=== PATIENT | male | born 1930 | race Caucasian/White ===

== ENCOUNTER 2017-05-29 10:18 | Emergency (ER) | payer MEDICARE, BC ==
[~2017-05-29] VITALS: Ht 172.7 cm; Wt 70.0 kg
[~2017-05-29 10:18] MED LIST: ASPI81TA52 PO; ATOR20TA66 PO; QUET25TA PO; TRIA1CAP6 PO
[2017-05-29 12:11] VITALS: BP 123/78
== END 2017-05-29 12:13 | disposition home or self-care (01) ==
LOC: ER 10:18 → MERGE 10:18 → ER 12:13
DX: S06.0X0A Concussion without loss of consciousness, initial encounter (principal); S76.911A Strain of unspecified muscles, fascia and tendons at thigh level, right thigh, initial encounter; Z79.899 Other long term (current) drug therapy; W18.30XA Fall on same level, unspecified, initial encounter; Y93.89 Activity, other specified; Y92.89 Other specified places as the place of occurrence of the external cause; Y99.8 Other external cause status
CPT/HCPCS: 99284

== ENCOUNTER 2017-06-08 14:35 | Emergency (ER) | payer MEDICARE, BC ==
[~2017-06-08] VITALS: Ht 182.9 cm; Wt 93.2 kg
[2017-06-08 15:24] LABS: CLARITY,URINE Clear (Clear); COLOR,URINE Yellow (Yellow); GLUCOSE, URINE Negative (Neg); KETONES,URINE Negative (Neg); LEUKOCYTE ESTERASE ,URINE Negative (Neg); NITRITES, URINE Negative (Neg); OCCULT BLOOD,URINE Negative (Neg); PROTEIN,URINE Negative (Neg)
[2017-06-08 15:33] LABS: UA COLLECTION TYPE CLN CATCH MIDSTREAM
[2017-06-08] MEDS ORDERED: OLANZapine 2.5MG tablet PO ONE (15:35)
[2017-06-08 15:42] LABS: BASOPHILS % (AUTO) 0.5 % (0-1); EOSINOPHILS # (AUTO) 0.2 X10'3 (0-0.9); EOSINOPHILS % (AUTO) 2.3 % (0-6); HEMATOCRIT 40.8 % (42.0-52.0); HEMOGLOBIN 14.1 g/dl (14.0-17.9); LYMPHOCYTES % (AUTO) 25.2 % (21-51); MEAN CORPUSCULAR HEMOGLOBIN 30.4 PG (27.0-31.0); MEAN CORPUSCULAR HGB CONC 34.4 % (33.0-36.5); MEAN CORPUSCULAR VOLUME 88.3 FL (78-98); MEAN PLATELET VOLUME 9.6 FL (7.4-10.4); MONOCYTES # (AUTO) 0.7 X10'3 (0-0.9); MONOCYTES % (AUTO) 8.6 % (2-12); NEUTROPHILS # (AUTO) 5.1 X10'3 (1.8-7.7); NEUTROPHILS % (AUTO) 63.4 % (42-75); PLATELET COUNT 255 X10'3 (140-440); RED BLOOD COUNT 4.62 X10'6 (4.70-6.10); RED CELL DISTRIBUTION WIDTH 15.2 % (11.5-14.5)
[2017-06-08 15:56] LABS: ALANINE AMINOTRANSFERASE 13 U/L (12-78); ALBUMIN 3.8 G/DL (3.4-5.0); ALBUMIN/GLOBULIN RATIO 0.9 (1.1-1.5); ALKALINE PHOSPHATASE 84 IU/L (46-116); ANION GAP 12 (8-16); ASPARTATE AMINO TRANSFERASE 18 U/L (10-37); BILIRUBIN,TOTAL 0.7 MG/DL (0.1-1.0); BLOOD UREA NITROGEN 46 MG/DL (7-18); BUN/CREATININE RATIO 25.1 (5.4-32.0); CALCIUM 9.5 MG/DL (8.5-10.1); CHLORIDE 103 MMOL/L (99-107); CREATININE 1.83 MG/DL (0.60-1.10); GLUCOSE 118 MG/DL (70-104); POTASSIUM 3.6 MMOL/L (3.5-5.1); SODIUM 141 MMOL/L (135-145); TOTAL CARBON DIOXIDE 26.2 MMOL/L (24-32); TOTAL PROTEIN 8.2 G/DL (6.4-8.2); eGFR 35 ML/MIN
[2017-06-08] MEDS ORDERED: normal saline 1000ML IV soln IVB ONE (16:05)
[2017-06-08 17:11] VITALS: BP 148/85
== END 2017-06-08 17:58 | disposition home or self-care (01) ==
LOC: ER 14:36
DX: E86.0 Dehydration (principal); N28.9 Disorder of kidney and ureter, unspecified; F03.90 Unspecified dementia, unspecified severity, without behavioral disturbance, psychotic disturbance, mood disturbance, and anxiety
CPT/HCPCS: 36415; 80053; 81003; 85025; 96360; 99284; J7030

== ENCOUNTER 2017-09-07 11:55 | Inpatient (IN) | payer MEDICARE, BC ==
[~2017-09-07] VITALS: Ht 177.8 cm; Wt 70.1 kg
[~2017-09-07 11:55] MED LIST changes: +DOXY100C43 PO; +ONDA8TAB9 PO
[2017-09-07] MEDS ORDERED: normal saline 1000ml 1,000 ML IV SCH (12:45)
[2017-09-07 13:06] LABS: BASOPHILS # (AUTO) 0.1 X10'3 (0-0.2); BASOPHILS % (AUTO) 0.5 % (0-1); EOSINOPHILS % (AUTO) 0.1 % (0-6); HEMATOCRIT 40.2 % (42.0-52.0); HEMOGLOBIN 13.8 g/dl (14.0-17.9); LYMPHOCYTES # (AUTO) 1.1 X10'3 (1.1-4.8); LYMPHOCYTES % (AUTO) 11.3 % (21-51); MEAN CORPUSCULAR HEMOGLOBIN 30.3 PG (27.0-31.0); MEAN CORPUSCULAR HGB CONC 34.3 % (33.0-36.5); MEAN CORPUSCULAR VOLUME 88.3 FL (78-98); MEAN PLATELET VOLUME 9.5 FL (7.4-10.4); MONOCYTES # (AUTO) 0.5 X10'3 (0-0.9); MONOCYTES % (AUTO) 5.5 % (2-12); NEUTROPHILS # (AUTO) 8.2 X10'3 (1.8-7.7); NEUTROPHILS % (AUTO) 82.6 % (42-75); PLATELET COUNT 361 X10'3 (140-440); RED BLOOD COUNT 4.55 X10'6 (4.70-6.10); RED CELL DISTRIBUTION WIDTH 14.8 % (11.5-14.5); WHITE BLOOD COUNT 9.9 X10'3 (4.5-11.0)
[2017-09-07] MEDS: normal saline 1000ml 1,000 ML IV SCH ×2 (13:09→23:09)
[2017-09-07] MEDS ORDERED: ondansetron/PF 4mg/2ml inj IV PRN (13:10)
[2017-09-07] MEDS ORDERED: acetaminophen 325mg tablet PO PRN ×2 (13:10)
[2017-09-07] MEDS ORDERED: pantoprazole 40mg Tablet.DR PO SCH (13:10)
[2017-09-07] MEDS ORDERED: potassium Cl 40MEQ/NS 500ml 500 ML IV PRN ×2 (13:10)
[2017-09-07] MEDS ORDERED: magnesium hydroxide 30ml (MOM) UD suspension PO PRN (13:10)
[2017-09-07] MEDS ORDERED: HYDROcodone/acetaminophen 10/325mg tab PO PRN (13:10)
[2017-09-07] MEDS: K and/or MAG REPLACEMENT MC SCH (13:10)
[2017-09-07] MEDS ORDERED: potassium Cl 20 mEq SR tablet PO PRN ×2 (13:10)
[2017-09-07] MEDS ORDERED: magnesium/D5W IVPB 50 ML IV PRN (13:10)
[2017-09-07] MEDS ORDERED: HYDROcodone/acetaminophen 5mg/325mg tablet PO PRN (13:10)
[2017-09-07] MEDS ORDERED: magnesium Cl slow-release 64mg tablet PO PRN (13:10)
[2017-09-07] MEDS ORDERED: mag hydrox/Alum hydrox/simeth 30ml oral suspension PO PRN (13:10)
[2017-09-07] MEDS ORDERED: magnesium 4gm in 100ml NS 100 ML IV PRN (13:10)
[2017-09-07 13:20] LABS: ALANINE AMINOTRANSFERASE 13 U/L (12-78); ALBUMIN 3.3 G/DL (3.4-5.0); ALBUMIN/GLOBULIN RATIO 0.7 (1.1-1.5); ALKALINE PHOSPHATASE 92 IU/L (46-116); ANION GAP 9 (8-16); ASPARTATE AMINO TRANSFERASE 21 U/L (10-37); BILIRUBIN,TOTAL 0.7 MG/DL (0.1-1.0); BLOOD UREA NITROGEN 28 MG/DL (7-18); BUN/CREATININE RATIO 19.7 (5.4-32.0); CHLORIDE 103 MMOL/L (99-107); CREATININE 1.42 MG/DL (0.60-1.10); GLUCOSE 111 MG/DL (70-104); POTASSIUM 3.3 MMOL/L (3.5-5.1); SODIUM 140 MMOL/L (135-145); TOTAL CARBON DIOXIDE 28.5 MMOL/L (24-32); TOTAL PROTEIN 7.9 G/DL (6.4-8.2); eGFR 47 ML/MIN
[2017-09-07 13:33] LABS: MAGNESIUM 1.8 MG/DL (1.5-2.4)
[2017-09-07 14:14] LABS: H PYLORI ANTIBODY NEGATIVE (Neg)
[2017-09-07] MEDS ORDERED: OLAN5TAB5 PO ×2 (15:18→15:21)
[2017-09-07] MEDS ORDERED: RIVA1PAT9 TOP (15:19)
[2017-09-07] MEDS ORDERED: SERT25TA PO (15:19)
[2017-09-07] MEDS ORDERED: RANI150T8 PO (15:20)
[2017-09-07] MEDS ORDERED: POLY17PO10 PO (15:20)
[2017-09-07] MEDS ORDERED: NAPR220T67 PO (15:22)
[2017-09-07] MEDS ORDERED: DOCU-28 PO (15:23)
[2017-09-07] MEDS ORDERED: LORA0.5T PO (15:24)
[2017-09-07 16:30] VITALS: BP 136/88
[2017-09-07] MEDS: pantoprazole 40 MG vial IV SCH (16:30)
[2017-09-07] MEDS: mag hydrox/Alum hydrox/simeth 30ml oral suspension PO SCH (17:00)
[2017-09-07 17:21] LABS: COLOR,URINE YELLOW (Yellow); GLUCOSE, URINE NEGATIVE (Neg); KETONES,URINE 15 mg/dl (Neg); LEUKOCYTE ESTERASE ,URINE NEGATIVE (Neg); NITRITES, URINE NEGATIVE (Neg); OCCULT BLOOD,URINE NEGATIVE (Neg); PROTEIN,URINE 30 mg/dl (Neg)
[2017-09-07 17:29] LABS: CLARITY,URINE SLIGHTLY CLOUDY (Clear); UA COLLECTION TYPE NON-SPECIFIED
[2017-09-07 17:30] LABS: RBC,URINE NONE SEEN /HPF (0-2)
[2017-09-07 17:31] LABS: BACTERIA,URINE FEW /HPF (Neg); HYALINE CASTS 0-3 /LPF (NEGATIVE); MUCUS STRANDS MODERATE /LPF (Neg); SQUAMOUS EPITHELIAL CELL,UR FEW /LPF (FEW)
[2017-09-07 19:30] VITALS: BP 173/85
[2017-09-07] MEDS: heparin, porcine 5000 units/ml vial SQ SCH (20:02)
[2017-09-07 23:35] VITALS: BP 141/60
[2017-09-08] VITALS: BP 148/75
[2017-09-08] MEDS: CefTRIAXone/D5W-Rocephin 1gm 50 ML IV SCH ×2 (00:39→07:36)
[2017-09-08] MEDS: normal saline 1000ml 1,000 ML IV SCH ×2 (05:01→16:01)
[2017-09-08 05:37] LABS: BASOPHILS % (AUTO) 0.6 % (0-1); EOSINOPHILS # (AUTO) 0.1 X10'3 (0-0.9); EOSINOPHILS % (AUTO) 1.5 % (0-6); HEMATOCRIT 36.5 % (42.0-52.0); HEMOGLOBIN 12.6 g/dl (14.0-17.9); LYMPHOCYTES # (AUTO) 1.8 X10'3 (1.1-4.8); LYMPHOCYTES % (AUTO) 23.8 % (21-51); MEAN CORPUSCULAR HEMOGLOBIN 30.8 PG (27.0-31.0); MEAN CORPUSCULAR HGB CONC 34.4 % (33.0-36.5); MEAN CORPUSCULAR VOLUME 89.5 FL (78-98); MEAN PLATELET VOLUME 10.1 FL (7.4-10.4); MONOCYTES # (AUTO) 0.5 X10'3 (0-0.9); MONOCYTES % (AUTO) 6.7 % (2-12); NEUTROPHILS # (AUTO) 5.1 X10'3 (1.8-7.7); NEUTROPHILS % (AUTO) 67.4 % (42-75); PLATELET COUNT 311 X10'3 (140-440); RED BLOOD COUNT 4.08 X10'6 (4.70-6.10); RED CELL DISTRIBUTION WIDTH 14.5 % (11.5-14.5); WHITE BLOOD COUNT 7.5 X10'3 (4.5-11.0)
[2017-09-08 06:01] LABS: ALANINE AMINOTRANSFERASE 12 U/L (12-78); ALBUMIN 2.8 G/DL (3.4-5.0); ALBUMIN/GLOBULIN RATIO 0.7 (1.1-1.5); ALKALINE PHOSPHATASE 77 IU/L (46-116); ANION GAP 9 (8-16); ASPARTATE AMINO TRANSFERASE 20 U/L (10-37); BILIRUBIN,TOTAL 0.5 MG/DL (0.1-1.0); BLOOD UREA NITROGEN 25 MG/DL (7-18); BUN/CREATININE RATIO 18.7 (5.4-32.0); CALCIUM 8.5 MG/DL (8.5-10.1); CHLORIDE 108 MMOL/L (99-107); CREATININE 1.34 MG/DL (0.60-1.10); GLUCOSE 97 MG/DL (70-104); MAGNESIUM 1.8 MG/DL (1.5-2.4); PHOSPHORUS 2.2 MG/DL (2.3-4.5); POTASSIUM 3.7 MMOL/L (3.5-5.1); SODIUM 142 MMOL/L (135-145); TOTAL CARBON DIOXIDE 25.4 MMOL/L (24-32); TOTAL PROTEIN 6.8 G/DL (6.4-8.2); eGFR 50 ML/MIN
[2017-09-08 06:54] VITALS: BP_SYST 121; BP_SYST 141; BP_DIAS 36; BP_DIAS 75
[2017-09-08] MEDS: mag hydrox/Alum hydrox/simeth 30ml oral suspension PO SCH ×3 (07:00→17:00)
[2017-09-08] MEDS: pantoprazole 40 MG vial IV SCH (07:36)
[2017-09-08] MEDS: heparin, porcine 5000 units/ml vial SQ SCH ×2 (07:36→20:31)
[2017-09-08] MEDS: K and/or MAG REPLACEMENT MC SCH (08:00)
[2017-09-08] MEDS ORDERED: LORazepam 0.5 MG tablet PO PRN (10:00)
[2017-09-08 11:00] VITALS: BP 173/83
[2017-09-08] MEDS: OLANZapine 5mg rapidly disint. tablet PO SCH (11:35)
[2017-09-08] MEDS: sertraline 50mg tablet PO SCH (11:36)
[2017-09-08] MEDS: megestrol acetate 400mg/10ml UD oral suspension PO SCH ×2 (11:36→20:30)
[2017-09-08 20:00] VITALS: BP 152/74
[2017-09-08] MEDS: lactobacillus rhamnosus 10,000 MMU CELLS/CAPSULE PO SCH (20:30)
[2017-09-09] VITALS: BP 133/81
[2017-09-09] MEDS: normal saline 1000ml 1,000 ML IV SCH ×3 (01:26→20:50)
[2017-09-09 05:06] LABS: BASOPHILS % (AUTO) 0.6 % (0-1); EOSINOPHILS # (AUTO) 0.2 X10'3 (0-0.9); EOSINOPHILS % (AUTO) 2.2 % (0-6); HEMATOCRIT 35.1 % (42.0-52.0); HEMOGLOBIN 11.9 g/dl (14.0-17.9); LYMPHOCYTES # (AUTO) 1.9 X10'3 (1.1-4.8); LYMPHOCYTES % (AUTO) 23.8 % (21-51); MEAN CORPUSCULAR HEMOGLOBIN 30.3 PG (27.0-31.0); MEAN CORPUSCULAR HGB CONC 33.9 % (33.0-36.5); MEAN CORPUSCULAR VOLUME 89.5 FL (78-98); MEAN PLATELET VOLUME 9.9 FL (7.4-10.4); MONOCYTES # (AUTO) 0.5 X10'3 (0-0.9); NEUTROPHILS # (AUTO) 5.5 X10'3 (1.8-7.7); NEUTROPHILS % (AUTO) 67.4 % (42-75); PLATELET COUNT 282 X10'3 (140-440); RED BLOOD COUNT 3.93 X10'6 (4.70-6.10); RED CELL DISTRIBUTION WIDTH 14.5 % (11.5-14.5); WHITE BLOOD COUNT 8.1 X10'3 (4.5-11.0)
[2017-09-09 05:27] LABS: ALANINE AMINOTRANSFERASE 11 U/L (12-78); ALBUMIN 2.7 G/DL (3.4-5.0); ALBUMIN/GLOBULIN RATIO 0.7 (1.1-1.5); ALKALINE PHOSPHATASE 76 IU/L (46-116); ANION GAP 7 (8-16); ASPARTATE AMINO TRANSFERASE 19 U/L (10-37); BILIRUBIN,TOTAL 0.4 MG/DL (0.1-1.0); BLOOD UREA NITROGEN 20 MG/DL (7-18); BUN/CREATININE RATIO 17.9 (5.4-32.0); CALCIUM 8.3 MG/DL (8.5-10.1); CHLORIDE 109 MMOL/L (99-107); CREATININE 1.12 MG/DL (0.60-1.10); GLUCOSE 101 MG/DL (70-104); MAGNESIUM 1.7 MG/DL (1.5-2.4); PHOSPHORUS 1.9 MG/DL (2.3-4.5); POTASSIUM 3.8 MMOL/L (3.5-5.1); SODIUM 141 MMOL/L (135-145); TOTAL CARBON DIOXIDE 25.1 MMOL/L (24-32); TOTAL PROTEIN 6.5 G/DL (6.4-8.2); eGFR 62 ML/MIN
[2017-09-09 07:00] VITALS: BP 133/88
[2017-09-09] MEDS ORDERED: magnesium hydroxide 30ml (MOM) UD suspension PO PRN (07:50)
[2017-09-09] MEDS: K and/or MAG REPLACEMENT MC SCH (08:00)
[2017-09-09] MEDS: mag hydrox/Alum hydrox/simeth 30ml oral suspension PO SCH ×3 (08:09→17:45)
[2017-09-09] MEDS: CefTRIAXone/D5W-Rocephin 1gm 50 ML IV SCH (08:09)
[2017-09-09] MEDS: sertraline 50mg tablet PO SCH (08:10)
[2017-09-09] MEDS: docusate sod 100mg capsule PO SCH ×2 (08:10→20:42)
[2017-09-09] MEDS: OLANZapine 5mg rapidly disint. tablet PO SCH (08:10)
[2017-09-09] MEDS: lactobacillus rhamnosus 10,000 MMU CELLS/CAPSULE PO SCH ×2 (08:10→20:42)
[2017-09-09] MEDS: megestrol acetate 400mg/10ml UD oral suspension PO SCH ×2 (08:10→20:42)
[2017-09-09] MEDS: pantoprazole 40mg Tablet.DR PO SCH (08:11)
[2017-09-09] MEDS: heparin, porcine 5000 units/ml vial SQ SCH ×2 (08:12→20:43)
[2017-09-09 11:00] VITALS: BP 144/80
[2017-09-09 18:44] VITALS: BP 138/76
[2017-09-10 00:49] VITALS: BP 158/80
[2017-09-10] MEDS: quetiapine 100mg tablet PO PRN ×2 (02:06→02:51)
[2017-09-10] MEDS ORDERED: haloperidol lactate 5mg/ml inj IM ONE ×2 (02:20→10:20)
[2017-09-10 06:09] LABS: BASOPHILS % (AUTO) 0.4 % (0-1); EOSINOPHILS # (AUTO) 0.2 X10'3 (0-0.9); EOSINOPHILS % (AUTO) 1.8 % (0-6); HEMATOCRIT 34.5 % (42.0-52.0); HEMOGLOBIN 11.7 g/dl (14.0-17.9); LYMPHOCYTES # (AUTO) 1.3 X10'3 (1.1-4.8); LYMPHOCYTES % (AUTO) 15.4 % (21-51); MEAN CORPUSCULAR HEMOGLOBIN 30.2 PG (27.0-31.0); MEAN CORPUSCULAR HGB CONC 33.9 % (33.0-36.5); MEAN PLATELET VOLUME 10.2 FL (7.4-10.4); MONOCYTES # (AUTO) 0.5 X10'3 (0-0.9); MONOCYTES % (AUTO) 5.6 % (2-12); NEUTROPHILS # (AUTO) 6.7 X10'3 (1.8-7.7); NEUTROPHILS % (AUTO) 76.8 % (42-75); PLATELET COUNT 268 X10'3 (140-440); RED BLOOD COUNT 3.87 X10'6 (4.70-6.10); RED CELL DISTRIBUTION WIDTH 14.5 % (11.5-14.5); WHITE BLOOD COUNT 8.8 X10'3 (4.5-11.0)
[2017-09-10 06:38] LABS: ALANINE AMINOTRANSFERASE 12 U/L (12-78); ALBUMIN 2.6 G/DL (3.4-5.0); ALBUMIN/GLOBULIN RATIO 0.7 (1.1-1.5); ALKALINE PHOSPHATASE 76 IU/L (46-116); ANION GAP 10 (8-16); ASPARTATE AMINO TRANSFERASE 13 U/L (10-37); BILIRUBIN,TOTAL 0.4 MG/DL (0.1-1.0); BLOOD UREA NITROGEN 14 MG/DL (7-18); BUN/CREATININE RATIO 10.9 (5.4-32.0); CALCIUM 8.3 MG/DL (8.5-10.1); CHLORIDE 107 MMOL/L (99-107); CREATININE 1.29 MG/DL (0.60-1.10); GLUCOSE 92 MG/DL (70-104); MAGNESIUM 1.4 MG/DL (1.5-2.4); PHOSPHORUS 1.7 MG/DL (2.3-4.5); POTASSIUM 3.2 MMOL/L (3.5-5.1); SODIUM 140 MMOL/L (135-145); TOTAL CARBON DIOXIDE 23.2 MMOL/L (24-32); TOTAL PROTEIN 6.2 G/DL (6.4-8.2); eGFR 52 ML/MIN
[2017-09-10 07:00] VITALS: BP 158/70
[2017-09-10] MEDS: mag hydrox/Alum hydrox/simeth 30ml oral suspension PO SCH (07:00)
[2017-09-10] MEDS: pantoprazole 40mg Tablet.DR PO SCH ×2 (07:30→08:52)
[2017-09-10] MEDS ORDERED: AMOX-422 PO (07:44)
[2017-09-10] MEDS ORDERED: LACT1CAP65 PO (07:44)
[2017-09-10] MEDS ORDERED: MEGE400O2 PO (07:44)
[2017-09-10] MEDS ORDERED: AMLO2.5T2 PO (07:44)
[2017-09-10] MEDS: lactobacillus rhamnosus 10,000 MMU CELLS/CAPSULE PO SCH ×2 (08:00→08:51)
[2017-09-10] MEDS: megestrol acetate 400mg/10ml UD oral suspension PO SCH ×2 (08:00→08:50)
[2017-09-10] MEDS: sertraline 50mg tablet PO SCH ×2 (08:00→08:51)
[2017-09-10] MEDS: K and/or MAG REPLACEMENT MC SCH (08:00)
[2017-09-10] MEDS: OLANZapine 5mg rapidly disint. tablet PO SCH ×2 (08:00→08:51)
[2017-09-10] MEDS: docusate sod 100mg capsule PO SCH ×2 (08:00→08:51)
[2017-09-10] MEDS: CefTRIAXone/D5W-Rocephin 1gm 50 ML IV SCH (08:49)
[2017-09-10] MEDS: heparin, porcine 5000 units/ml vial SQ SCH (08:50)
== END 2017-09-10 11:49 | disposition home health service (06) | DRG 682 ==
LOC: SUR 3N 12:27
PROVIDERS: ADMIT Family Medicine; ATTEND Family Medicine
DX: N17.9 Acute kidney failure, unspecified (principal); G93.41 Metabolic encephalopathy; N39.0 Urinary tract infection, site not specified; F02.81 Dementia in other diseases classified elsewhere, unspecified severity, with behavioral disturbance; N18.9 Chronic kidney disease, unspecified; E78.5 Hyperlipidemia, unspecified; G30.9 Alzheimer's disease, unspecified; I12.9 Hypertensive chronic kidney disease with stage 1 through stage 4 chronic kidney disease, or unspecified chronic kidney disease; R62.7 Adult failure to thrive; Z66 Do not resuscitate; Z79.82 Long term (current) use of aspirin; Z79.899 Other long term (current) drug therapy; Z88.2 Allergy status to sulfonamides; Z88.1 Allergy status to other antibiotic agents; Z88.8 Allergy status to other drugs, medicaments and biological substances
CPT/HCPCS: 36415; 70450; 80053; 81001; 83605; 83735; 84100; 84145; 85025; 86677; 87040; 87070; 97110; 97116; 97161; A4353; A4649; A6243; A6446; A6449; C9113; J0696; J1630; J1644; J3480; J7030